=== PATIENT | female | born 1940 | race Caucasian/White ===

== ENCOUNTER 2019-02-07 11:33 | Inpatient (IN) | payer OTHER ==
[~2019-02-07] VITALS: Ht 160 cm; Wt 73.5 kg
[~2019-02-07 11:33] MED LIST: AUGMENTIN 875-1 EACH PO; BASAGLAR K100 UNIT/1 SUBQ; DOXYCYCLINE 10100 MG PO; FOSAMAX 70 MG T70 MG PO; HYDROCHLOROTH12.5 M1 PO; IRON325 M1 PO; LEXAPRO 10 MG T10 M2 PO; LISINOPRIL-HCT1 EAC2 PO; LISINOPRIL10 MG PO; NOVOLIN N100 UNIT/1 SUBQ; NOVOLIN R100 UNIT/3 SUBQ; ONDANSETRON HCL4 M2 PO; PRILOSEC10 MG PO; SENNA PLUS TAB1 EACH PO; SYNTHROID100 MC1 PO; VIBRAMYCIN 100100 MG PO; ZOCOR20 MG PO; ZYPREXA 5 MG TAB5 M1 PO
[2019-02-07 12:31] VITALS: BP 170/81
[2019-02-07] MEDS ORDERED: ZESTORETIC 20-1 EAC1 PO (13:29)
[2019-02-07] MEDS ORDERED: SLOW FE142 MG PO (13:30)
[2019-02-07] MEDS ORDERED: SIMVASTATIN80 MG PO (13:30)
[2019-02-07 20:13] VITALS: BP 110/74
[2019-02-08 07:50] VITALS: BP 141/62
--- NOTE | 2019-02-08 11:04 | HC ---
[facility] [place] [address] CONSULTATION Name: MAXIMUS GUERRERO Room #: 528B-A [facility] IN ..#: [id number] Admission: 02/07/19 Attend Phys: Patrick Alvares DO Discharge: Date of : 44 Report #: [id number] THIS REPORT FOR: //name// CC: Patrick Alvares [facility] DATE OF SERVICE: 02/07/2019 ENDOCRINE CONSULTATION NOTE CONSULTING PHYSICIAN: Dr. Patrick Alvares. REASON FOR CONSULTATION: Uncontrolled type 2 diabetes mellitus. HISTORY OF PRESENT ILLNESS: This is a 78-year-old female patient whose medical background is significant for multiple medical issues including type 2 diabetes mellitus, hypothyroidism, neurocognitive dysfunction as well as hyperlipidemia. The patient was admitted today due to worsening mental status changes as well as worsening forgetfulness. I am consulted today regarding her type 2 diabetes mellitus and therapeutic options that might be suitable for her in this regard. The patient indicates that she has been a diabetic for many years. She did indicate that she is being treated at home with a single daily injection of insulin, but was unable to detail me on the brand of insulin or dose selection when I asked her to do so. However, having reviewed her medical records, it appears that she is on Basaglar 35 units once a day. The patient was unable to provide fine details pertaining to her blood glucose pattern at home, but she indicated that her blood glucose values would fluctuate widely to where they can go from being too low to being too high above 300 mg/dL. She is not aware of issues pertaining to diabetic retinopathy, nephropathy or neuropathy. Additionally, she has had hypothyroidism for many years and is maintained on therapy with levothyroxine 100 mcg daily. She is also hypertensive and hyperlipidemic. It appears that the patient has osteoporosis. REVIEW OF SYSTEMS: CONSTITUTIONAL: Fatigue, tiredness, but not fever or chills or major changes in body weight. She indicates that her appetite had been suppressed recently. HEENT: Negative for sinus pain, ear drainage. PULMONARY: Occasional shortness of breath and cough, but not hemoptysis. CARDIAC: Occasional chest discomfort, palpitations and lower extremity edema. GASTROINTESTINAL: Occasional abdominal distention, nausea, but no vomiting or major changes in bowel movement frequency. NEUROLOGY: Occasional dizziness, lightheadedness, but not seizure activity or loss of consciousness. [address] [address] CONSULTATION Name: MAXIMUS GUERRERO Room #: 528B-A [facility] IN [facility].#: [id number] Admission: 02/07/19 Attend Phys: Patrick Alvares DO Discharge: Date of : 44 Report #: [id number] MUSCULOSKELETAL: Scattered myalgia and arthralgias. PSYCHIATRIC: Forgetfulness, poor focus, but no hallucinations. Otherwise, review of systems noncontributory other than those mentioned in HPI. PAST MEDICAL HISTORY: 1. Type 2 diabetes mellitus. 2. Hypertension. 3. Hyperlipidemia. 4. Chronic kidney disease stage 3B. 5. Neurocognitive dysfunction/dementia. 6. Osteoporosis. 7. Iron deficiency. 8. Hypothyroidism. OUTPATIENT MEDICATIONS: As per her [facility] records include omeprazole daily, alendronate 70 mg weekly, lisinopril/hydrochlorothiazide 20/25 mg daily, senna daily, ferrous sulfate 325 mg daily, Basaglar insulin 35 units daily, simvastatin 20 mg daily, levothyroxine 100 mcg daily, olanzapine, Zyprexa 5 mg at bedtime. ALLERGIES: Her Erin's chart notes allergies to MORPHINE. FAMILY HISTORY: Noncontributory. SOCIAL HISTORY: The patient denies use of tobacco, alcohol or illicit drugs. She lives with her daughter. PHYSICAL EXAMINATION: GENERAL: Pleasant elderly female patient, who is not in apparent distress. VITAL SIGNS: Blood pressure is 170/81 mmHg, heart rate is 76 beats per minute, respirations 16 per minute, temperature 36.5 degrees. CONSTITUTIONAL: The patient was sitting at a table across from ct, seemingly comfortable, not in apparent pain or distress. HEENT: Anicteric sclerae. Intact extraocular motions. NECK: Supple without JVD. No thyromegaly. CHEST: Noted for moderate entry bilaterally with scattered rales. HEART: Regular rate and rhythm without murmurs or gallops. ABDOMEN: Soft and lax without tenderness or organomegaly. She has active bowel sounds. EXTREMITIES: Lower extremity exam is noted for trace ankle edema. No skin breaks or ulcerations. Pedal pulses are appreciated. NEUROLOGIC: Awake, alert and oriented to time, place and person. The remainder of her examination is nonfocal. PSYCH: Pleasant, appropriate and interactive. Normal mood and affect. [address] [address] CONSULTATION Name: MAXIMUS GUERRERO Room #: 528B-A ADM IN M.R.#: [id number] Admission: 02/07/19 Attend Phys: Patrick KellerRhonda Lagunaschioma, DO Discharge: Date of : 42 Report #: [id number] LABORATORY DATA: She had one blood glucose measured since her arrival here at 148 mg/dL. Otherwise, I have reviewed her lab work at [facility] dating 01/26/2019 and these are noted for sodium 129, potassium 4.3, chloride 93, carbon dioxide 26, anion gap 10, BUN 35, creatinine 1.9, GFR 26, glucose 659, calcium 9.5, AST 29, ALT 40, alkaline phosphatase 105, albumin 3.6. Hemoglobin 12.2. On subsequent labs at [facility], the patient's GFR corrected to 40. Her glucose was 210. Hemoglobin A1c was done and was 10. Sodium was 136. ASSESSMENT AND PLAN: 1. Type 2 diabetes mellitus. The patient appears to have a background that is noted for longstanding type 2 diabetes mellitus with a hallmark of severe hyperglycemia as indicated by a recently documented hemoglobin A1c of 10% as well as the probable occurrence of hyperosmolar nonketotic coma for which she was managed at [facility]. The patient is unable to provide fine historic details about her diabetic course, but it is clear that the patient has certainly dealt at least intermittently with severe hyperglycemia. The main question that I am being asked is whether or not we can simplify the patient's regimen to where it does not need to be insulin based. This would be a function of establishing her therapeutic needs, which ties in closely to her current glycemic baseline as well as the weight of any significant therapeutic limitations that would block the use of oral antidiabetic agents. To mention one of those, the advanced kidney disease that the patient has been documented to have in the recent past certainly makes metformin and SGLT2 inhibitors simply none options for the patient. I will start by obtaining an up-to-date kidney function test to better evaluate her current functional status and as such whatever therapeutic limitations you might have. Also, I will establish blood glucose monitoring to be conducted a.c. and at bedtime with low intensity Humalog supplemental scale coverage. Based on her recent labs, I feel that we can at the very least start her on Tradjenta 5 mg daily while we await further daily blood glucose values and go from there. My initial impression is that if the patient indeed is dealing with this level of hyperglycemia and with chronic comorbidities that she has that insulin would probably eventually still be needed. 2. Hypothyroidism. The patient has longstanding hypothyroidism and is currently on a dose of levothyroxine 100 mcg daily. I will check TSH and free T4 to better assess the adequacy of this dosage. 3. Hyperlipidemia. The patient is maintained on simvastatin in the outpatient setting. I will defer the initiation of lipid-lowering therapy to the Hospital Medicine team. 4. Hypertension. The patient has a known hypertensive background and is maintained on lisinopril hydrochlorothiazide in the outpatient setting. I will defer the initiation of antihypertensive therapy to the Hospital Medicine team as [place] [address] CONSULTATION Name: MAXIMUS GUERRERO Room #: 528B-A ADM IN .R.#: [id number] Admission: 02/07/19 Attend Phys: Patrick Alvares DO Discharge: Date of : 44 Report #: [id number] I have reviewed the patient's clinical care note, laboratory data both past and present and both in and outside [facility] for over 35 minutes. I certainly appreciate this consultation by Dr. Alvares. <ELECTRONICALLY SIGNED> By: Alexandro Ochoa MD 02/08/19 1104 [id number] [id number] Alexandro Ochoa MD /nt
[2019-02-08 20:00] VITALS: BP 129/76
[2019-02-09 07:47] VITALS: BP 105/61
[2019-02-09 08:30] VITALS: BP 105/61
[2019-02-09 19:53] VITALS: BP 142/74
[2019-02-10 08:04] VITALS: BP 114/70
[2019-02-10 17:51] VITALS: BP 114/70
[2019-02-10 20:27] VITALS: BP 152/72
[2019-02-11 13:01] VITALS: BP 141/81
[2019-02-11] MEDS ORDERED: RISPERDAL 1 MG T1 MG PO (13:59)
[2019-02-11] MEDS ORDERED: TRADJENTA5 MG PO (14:03)
[2019-02-11] MEDS ORDERED: LANTUS100 UNIT/M SUBQ (14:05)
[2019-02-11] MEDS ORDERED: GLIPIZIDE ER2.5 MG PO (14:06)
--- NOTE | 2019-02-12 09:32 | H ---
[facility] [place] [address] HISTORY AND PHYSICAL Name: MAXIMUS GUERRERO Room #: 528B-A [facility] IN ..#: [id number] Admission: 02/07/19 Attend Phys: Patrick Alvares DO Discharge: 02/11/19 Date of : 44 Report #: [id number] THIS REPORT FOR: //name// CC: Patrick Alvares [facility] DATE OF SERVICE: 02/07/2019 INPATIENT PSYCHIATRIC EVALUATION ATTENDING PHYSICIAN: Patrick Alvares DO. SCIENTIFIC SOFTWARE ENGINEER: Fransisco Whitt MD ADDITIONAL DRUPAL DEVELOPER: Alexandor Blood M.D., Endocrinology. REASON FOR ADMISSION: The patient with a recent diagnosis of dementia who called 911 and brought to [facility] by ambulance for complaints of nausea. Also made statements that her daughter's family not caring for her. Not giving her insulin and giving her too much insulin. HISTORY OF PRESENT ILLNESS: The patient is paranoid and believes family is trying to hurt her. Primary care referred her to Psychiatry, which has been pending. Per family, she has been having odd behavior and tried to put a fork in the toaster, not thinking clearly. I spoke with the daughter Digna. The patient was started on donepezil 5 mg a week and a half ago. Her PCP is Liza Sweeney, who is the nurse practitioner. The patient lives with her daughter and son-in-law. LABORATORY DATA: CBC today, H and H 12.0 and 33.9, white count 8.2, platelet count 290. Chemistry: Sodium 137, potassium 3.6, chloride 99, bicarbonate 31, anion gap 7, BUN 14, creatinine 1.3, estimated GFR 40, pertinent history of stage 3 CKD. Hemoglobin A1c on 01/27/2019 was 10, calcium 9.3; magnesium 1.8, on 01/2010. AST 41, ALT 51, alkaline phosphatase 87. Troponin less than 0.06. NT-proBNP 183, total protein 6.7, albumin 3.4, lipase 99, done on 02/07/2019. No imaging done today. The patient's last head CT was 03/04/2018, so not quite a year ago. Findings were moderate greater cerebral atrophy. SOCIAL HISTORY: . She has had three kids. Denies tobacco, alcohol or drug use. Retired sounds like at least 10 years. No recreational drug use. FAMILY HISTORY: Dementia or psychiatric illness. Diabetes, hypertension. PAST MEDICAL HISTORY: pneumonia, dyspnea, CKD stage 3, diabetes mellitus. [address] [address] HISTORY AND PHYSICAL Name: MAXIMUS GUERRERO Room #: 528B-A [facility] IN ..#: [id number] Admission: 02/07/19 Attend Phys: Patrick Alvares, Discharge: 02/11/19 Date of : 44 Report #: [id number] REVIEW OF SYSTEMS: The patient was not cooperative just stating she did not need to be here. Oriented to month, not day but year, not to place fully. Memory impaired. Could not remember calling 911 this morning. PHYSICAL EXAM: Slow gait. Normal station. MENTAL STATUS EXAMINATION: This is a well-developed, fairly nourished female appearing at least stated age. Attention limited. Concentration limited. Speech is normal rate. Thought process linear and goal directed. Thought content, amnestic, poor insight. No psychomotor agitation. No psychomotor retardation. Denied SI or HI. Denied hopelessness, helplessness. Memory grossly impaired but not formally tested. Insight impaired. Judgment impaired. Fund of knowledge below average. FORMULATION: A 78-year-old female admitted with dementia with behavioral disturbance. 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 Other comorbidities including diabetes mellitus, on insulin; hypertension; hyperlipidemia. PLAN: Continue lisinopril 20 mg, levothyroxine 100 mcg daily. Continue olanzapine 5 mg p.o. daily, donepezil. Continue atorvastatin 100 mg p.o. at bedtime, insulin Humalog moderate sliding scale a.c. and at bedtime, usual PRNs including glucagon. Plan will be to evaluate, stabilize, obtain collateral. Time spent on interview, review of records, coordination of care is approximately 60 minutes. STRENGTHS: She has supportive family and insured. WEAKNESSES: Advancing age, already been diagnosed with dementia [facility]. I have asked the daughter to bring records from . <ELECTRONICALLY SIGNED> By: Patrick Alvares DO 02/12/19 0932 [id number] [id number] Patrick Alvares DO /nt
--- NOTE | 2019-02-14 14:29 | D ---
[facility] [place] [address] DISCHARGE SUMMARY Name: MAXIMUS GUERRERO Room #: 528B-A [facility] IN [facility]#: [id number] Admission: 02/07/19 Attend Phys: Patrick Alvares DO Discharge: 02/11/19 Date of : 44 Report #: [id number] THIS REPORT FOR: //name// CC: Patrick Alvares [facility] DATE OF SERVICE: 02/11/2019 INPATIENT PSYCHIATRIC DISCHARGE SUMMARY ATTENDING PHYSICIAN: Patrick Alvares DO SECURITY TESTER AT THE TIME OF DISCHARGE: Fransisco Whitt MD DISCHARGE DIAGNOSIS: Major neurocognitive disorder. DISCHARGE PLAN: Discharging to her daughter Kathya's, son-in-law's Ihsan's home. The patient has established outpatient providers. DISCHARGE DIET: Diabetic 1800 calories. ACTIVITY LEVEL: As tolerated. The patient does require 24/ assistance supervision. REASON FOR ADMISSION: Back on the 02/07 was transferred from [facility] ER for complaints of nausea. Apparently made statements daughter was not caring for her. Some delusional features, so she was admitted for that. HOSPITAL COURSE: The patient was admitted to the Geriatric Psychiatry Unit. Regarding medication interventions, she was on olanzapine and given her difficult to control diabetes, this was switched to risperidone [address] Syed consulted, recommended moving her to Tradjenta and glipizide regimen, which was started. The patient continued to have labile blood sugars. Dr. Whitt put her back on glargine. Humalog sliding scale was used during the hospitalization. The patient will need ongoing followup for her diabetes. Family is welcome to see Dr. Syed in his Endocrinology clinic. During the course of hospitalization, the patient was pleasantly confused and wanted to go home. CONDITION AT DISCHARGE: Stable. No SI, no HI. PHYSICAL EXAMINATION: VITAL SIGNS: On the day of discharge, temperature 36.1, pulse 104, respirations [address] [address] DISCHARGE SUMMARY Name: MAXIMUS GUERRERO Room #: 528B-A [facility]#: [id number] Admission: 02/07/19 Attend Phys: Patrick Alvares DO Discharge: 02/11/19 Date of : 44 Report #: [id number], BP 141/84, O2 sat 100%. MUSCULOSKELETAL: Normal gait and station. MENTAL STATUS EXAMINATION: This is a well-developed female, her glasses are on her neck. Attention intact. Concentration limited. Speech is normal rate, rhythm and tone. Thought process limited goal directed. Thought content focused on discharge. Mood and affect congruent, restricted. No SI, no HI. No helplessness, no hopelessness. Memory not formally tested on day of discharge. Insight limited. Judgment limited. Fund of knowledge below average. PROGNOSIS: For this patient is guarded given her major neurocognitive disorder. Also, please see social work notes for further aftercare characterization. <ELECTRONICALLY SIGNED> By: Patrick Alvares, 02/14/19 1429 [id number] Patrick Alvares DO /nt
== END 2019-02-11 16:36 | disposition home or self-care (01) | DRG 884 ==
LOC: SBH 11:33
PROVIDERS: ADMIT Psychiatry & Neurology Psychiatry
DX: F01.51 Vascular dementia, unspecified severity, with behavioral disturbance (principal); N18.3 Chronic kidney disease, stage 3 (moderate); F03.91 Unspecified dementia, unspecified severity, with behavioral disturbance; E03.9 Hypothyroidism, unspecified; E78.5 Hyperlipidemia, unspecified; M81.0 Age-related osteoporosis without current pathological fracture; E11.22 Type 2 diabetes mellitus with diabetic chronic kidney disease; I12.9 Hypertensive chronic kidney disease with stage 1 through stage 4 chronic kidney disease, or unspecified chronic kidney disease; E61.1 Iron deficiency; Z88.6 Allergy status to analgesic agent; Z83.3 Family history of diabetes mellitus; Z82.49 Family history of ischemic heart disease and other diseases of the circulatory system; Z81.8 Family history of other mental and behavioral disorders
CPT/HCPCS: 10880